=== PATIENT | male | born 1975 | race Caucasian/White ===

== ENCOUNTER → 2018-06-24 | Outpatient (CLI) | payer BC, OTHER ==
[~2018-06-24] VITALS: Ht 175.3 cm; Wt 78.5 kg
[~2018-06-24] MED LIST: LYRICA 75 MG CA75 MG PO; NORCO 5-325 TA1 EACH PO; OXYCODONE-ACET1 EACH PO; QSYMIA 11.25 M1 EACH PO; ZANAFLEX2 MG PO; ZANAFLEX4 MG PO
--- NOTE | ~2018-06-24 | HPC ---
[facility] [place] [address] PAIN MANAGEMENT CONSULTATION Name: GLADYS JAMIL Room #: REG [facility] Alfonso#: [id number] Admission: 06/24/18 Attend Phys: Rufus Montano DO Discharge: Date of : 77 Report #: [id number] THIS REPORT FOR: //name// CC: ROSA Allison Physician staff DATE OF SERVICE: 06/24/2018 CHIEF COMPLAINT: Low back pain, bilateral lower extremity pain with paresthesias. HISTORY OF PRESENT ILLNESS: As you know, the patient is a 43-year-old male who is typically seen in our [facility] office for lumbar radicular symptoms for which he undergoes epidural injections and receives Lyrica for pain control. He has recently changed his care over to [facility] office due to conflicts of scheduling at [facility]. He indicates pain is well controlled with epidural injections. His pain began about 2 years 3 months ago and has been intermittent since that point. He denies injury or trauma that may have led to symptom development. The patient indicates today, his pain is continuous with intermittent exacerbations and describes pain as shooting, sharp, numbness and tingling when describing pain. He places today's pain score at 8/10, daily average of 5-8/10, worst the pain has been is 9/10. The patient states that walking and certain activities exacerbate symptoms; resting and lying down tends to improve pain as do epidural injections and Lyrica. He returns today in followup visit to undergo lumbar epidural injection under fluoroscopic guidance and to receive refills of his Lyrica therapy. PAST MEDICAL HISTORY: 1. Chronic lumbar radicular symptoms. 2. Weight issues. PAST SURGICAL HISTORY: Back surgery. SOCIAL HISTORY: The patient denies tobacco, alcohol, IV or illicit drug use. 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 He is not receiving workmen's compensation nor is he trying to obtain disability benefits. He is not in litigation in regards to pain. REVIEW OF SYSTEMS: Positive for low back pain, bilateral lower extremity pain with paresthesias, variable weight. Difficulty with ambulating when pain is intense. All other review of systems is negative per 12-point review of systems other than those listed in history of present illness. Pain impact score 30/70 indicating [id number] interference of daily [address] [address] PAIN MANAGEMENT CONSULTATION Name: GLADYS JAMIL JACKIEPABLO Room #: REG BIB [facility]#: [id number] Admission: 06/24/18 Attend Phys: Rufus Montano DO Discharge: Date of : 77 Report #: [id number] activities secondary to pain. ALLERGIES: No reported drug allergies. CURRENT MEDICATIONS: Pregabalin 75 mg t.i.d., tizanidine 2 mg t.i.d. p.r.n., hydrocodone 5/325 one tab every 6 hours p.r.n. for pain, Qsymia 1 tab per day. IMAGING: No new imaging available. PHYSICAL EXAMINATION: VITAL SIGNS: Blood pressure 133/97, pulse 86, respiratory rate 16 and unlabored. The patient is 100% on room air. Height 5 feet 9 inches tall, weight 173 pounds, BMI calculated 25.5. GENERAL: Well-developed, well-nourished, well-hydrated 43-year-old male appearing stated age, placing current pain score at 8/10. HEENT: Normocephalic, atraumatic. Pupils equal, round, reactive to light. Extraocular muscles are intact. Sclerae nonicteric without injection. NEUROLOGIC: Cranial nerves 2-12 grossly intact. Speech fluent. LUNGS: Clear, no wheeze, rhonchi or rales. CARDIOVASCULAR: Regular. No appreciable gallop, no rub. ABDOMEN: Soft, nontender, nondistended, normoactive bowel sounds. EXTREMITIES: Show no clubbing, no cyanosis, no edema. MUSCULOSKELETAL: Seated straight leg raising negative. Supine straight leg raising positive. Serenity's test negative. Modified Gaenslen's is positive for axial low back pain. Ankle clonus negative. Gait mildly antalgic. Muscle bulk and tone appears equal and symmetrical. Deep tendon reflexes at patella and Achilles equal and symmetrical. ASSESSMENT: 1. Symptomatic lumbar radiculopathy. 2. Displacement of lumbar intervertebral disk with radiculopathy. 3. Lumbosacral spondylosis with radiculopathy. 4. Lumbar degeneration. 5. Chronic intractable pain. PLAN: 1. The patient returns today in followup visit to our clinic here at [facility] to undergo epidural injection under fluoroscopic guidance. He has recently changed his care from our [facility] office to [facility] office due to scheduling conflicts. The patient indicates no new injury or trauma that may have led to symptom recurrence. He typically receives injections about every 2-3 months for pain control and does very well with the injections. He has returned today in followup visit here at [facility] to undergo epidural injection under fluoroscopic guidance. He has been advised of the risks and benefits. These risks include but are not necessarily limited to bleeding, bruising, infection, worsening pain, no relief [facility] [address] [place] [address] PAIN MANAGEMENT CONSULTATION Name: GLADYS JAMIL Room #: REG [facility]#: [id number] Admission: 06/24/18 Attend Phys: Rufus Montano DO Discharge: Date of : 77 Report #: [id number] of pain, also risk of temporary or permanent muscle weakness, temporary or permanent nerve damage, possible paralysis and . The patient states he understood and wished to proceed. 2. The patient was provided a prescription for Lyrica 75 mg dose 1 tab p.o. t.i.d., I have given the patient #270, which is a 3-month prescription, I have given him also 3 refills 1 year of medication. The patient sends these to his mail order pharmacy who provides the medication on a 3-month basis. The prescriptions were provided to the patient today. 3. We will see the patient back in followup visit on an as needed basis for next in the series of epidural injections. Otherwise, we will see him back in 1 year for refills of Lyrica. By: [id number] Rufus Montano DO /nt
--- NOTE | ~2018-06-24 | HPC ---
[facility] [place] [address] [address] [place] [address] PAIN MANAGEMENT CONSULTATION Name: GLADYS JAMIL Room #: REG [facility] Alfonso#: [id number] Admission: 06/24/18 Attend Phys: Rufus Montano DO Discharge: Date of : 77 Report #: [id number] THIS REPORT FOR: //name// CC: ROSA Allison Physician staff DATE OF SERVICE: 06/24/2018 DESCRIPTION OF PROCEDURE: L5-S1 interlaminar epidural steroid injection under fluoroscopic guidance. After obtaining written consent, the patient was taken back to fluoroscopy suite, placed in prone position with pillow under abdomen to decrease lumbar lordosis. Skin overlying lumbosacral area then prepped and draped in aseptic fashion. Lumbar intervertebral spaces were identified by AP fluoroscopy. Skin and subcutaneous tissue overlying target site of injection was anesthetized with 3 mL of 1% lidocaine. A 20-gauge 3-1/2-inch Tuohy needle advanced under fluoroscopic guidance towards the epidural space using a parasagittal approach. Epidural space identified using loss of resistance to air technique. After negative aspiration for heme or cerebrospinal fluid, 1 mL of Isovue injected. Lumbar epidurogram confirmed using both AP and lateral fluoroscopy. After negative aspiration for heme or cerebrospinal fluid, 5 mL of solution containing 2 mL 40 mg per mL, 80 mg total triamcinolone, 3 mL lidocaine 1% injected slowly. Needle retracted approximately half way, flushed with 1 mL of 1% lidocaine and removed. Sterile bandage placed over injection site. No new motor deficits present in the lower extremity following the procedure. The patient tolerated procedure well, carefully escorted to recovery room in stable condition. No apparent complication. After meeting discharge criteria, the patient discharged home. By: [id number] Rufus Montano DO /nt
[2018-06-24 14:36] VITALS: BP 133/97
== END | disposition home or self-care (01) ==
LOC: PAIN 06:40
DX: M51.16 Intervertebral disc disorders with radiculopathy, lumbar region (principal); M47.27 Other spondylosis with radiculopathy, lumbosacral region; G89.29 Other chronic pain; Z79.891 Long term (current) use of opiate analgesic; Z79.899 Other long term (current) drug therapy; Z98.890 Other specified postprocedural states

== ENCOUNTER → 2019-09-15 | Outpatient (CLI) | payer BC, OTHER ==
[~2019-09-15] VITALS: Ht 175.3 cm; Wt 94.6 kg
[2019-09-15 12:46] VITALS: BP 140/97
--- NOTE | 2019-09-15 12:57 | NUR ---
Pain Clinic Assessment: 1. History of Osteoarthritis: Not Applicable History of Rheumatoid Arthritis: Not Applicable 2. Height: 5 ft. 9 in. 175.3 cm. Weight: 208.6 lb. oz. 94.620 kg. Patient's BMI: 30.8 3. Vital Signs: BP: 140/97 Pulse: 80 Resp: 16 Temp: 02 Sat: 98 ECG Mon: 4. Pain Intensity: 7 5. Fall Risk: Dizziness: N Needs help standing or walking: N Fallen in the last 3 months: N Fall risk comments: 6. Patient on Blood Thinner: None 7. History of Hypertension: N 8. Opioid Therapy greater than 6 weeks: Y Opiate Contract Signed: 9. Risk Assessment Tool Provided: 1-LOW 10. Functional Assessment Tool: 11. Recreational Drug Use: Never Drug Type: Tobacco Use: Never Smoker Tobacco Type: Amount or Packs/day: How Many Years: Alcohol Use: No Frequency: Quant:
--- NOTE | 2019-09-16 13:52 | HPC ---
[facility] [address] [address] [place] [address] PAIN MANAGEMENT CONSULTATION Name: GLADYS JAMIL Room #: REG BIB [facility].#: [id number] Admission: 09/15/19 Attend Phys: Rufus Montano DO Discharge: Date of : 77 Report #: [id number] THIS REPORT FOR: cc: ROSA ALLISON MD Physician not on staff Rufus Montano DO ~ THIS REPORT FOR: //name// CC: ROSA Montano Physician staff DATE OF SERVICE: 09/15/2019 REFERRING PHYSICIAN: Dr. Rosa Allison. CHIEF COMPLAINT: Low back pain, right lower extremity pain with paresthesias. HISTORY OF PRESENT ILLNESS: As you know, the patient is a 44-year-old male who has returned today in followup visit with recurrent low back pain, right lower extremity pain with paresthesias and intermittent left lower extremity pain. The patient states pain has been on and off for years, but of late has just recently been exacerbated. He is typically well controlled with Lyrica 75 mg dose 3 times a day, but apparently his symptoms worsened while he was on a trip to [facility]. He has returned today in followup visit per the request of his PCP to discuss the possibility of undergoing a lumbar epidural injection under fluoroscopic guidance. The patient denies injury or trauma that may have led to symptom development. He does have a longstanding history of back pain, for which he has been followed by our services both here at [facility] and at our [facility] office. He returns today for epidural injection and received refill of Lyrica. ALLERGIES: No known drug allergies. CURRENT MEDICATIONS: Lyrica 75 mg 3 times a day, Qsymia 1 tab per day, hydrocodone 5/325 one tab every 6 hours p.r.n. for pain, tizanidine 2 mg 2 tabs t.i.d. p.r.n. muscle spasm. SOCIAL HISTORY: The patient denies tobacco, alcohol, IV or illicit drug use. He is working, not receiving workmen's compensation, accompanied by his present in room today. IMAGING: No new imaging available. PHYSICAL EXAMINATION: [facility] [address] [place] [address] PAIN MANAGEMENT CONSULTATION Name: GLADYS JAMIL Room #: REG [facility].#: [id number] Admission: 09/15/19 Attend Phys: Rufus Montano DO Discharge: Date of : 77 Report #: [id number] VITAL SIGNS: Blood pressure 140/97, pulse 80, respiratory rate 16 and unlabored. The patient is 98% on room air. Height 5 feet 9 inches tall, weight 208.6 pounds, BMI calculated 30.8. GENERAL: Well-developed, well-nourished, well-hydrated 44-year-old male appearing stated age, pain is rated today 7/10. HEENT: Normocephalic, atraumatic. Pupils equal, round and reactive to light. Speech is fluent. EXTREMITIES: Show no clubbing, no cyanosis, no edema. MUSCULOSKELETAL: Seated straight leg raising is mildly positive on the right, negative left. Supine straight leg raising positive on the right. Serenity's test is negative. Modified Gaenslen's positive for some axial low back pain. Gait appears just mildly antalgic favoring right lower extremity. Muscle bulk and tone equal and symmetrical in lower extremities. ASSESSMENT: 1. Symptomatic lumbar radiculopathy. 2. Spinal stenosis of the lumbar spine. 3. Displacement of lumbar intervertebral disk with radiculopathy. 4. Lumbosacral spondylosis with radiculopathy. 5. Chronic intractable pain. PLAN: 1. The patient returns today in followup visit to undergo lumbar epidural injection under fluoroscopic guidance. The patient has reported good efficacy with previous epidural injections, noting up to 80-90% improvement in overall pain. He is denying any new injury or trauma that may have led to symptom reoccurrence. He is not on any blood thinners or antibiotics, which would preclude us from providing the injection today. He has been advised of the risks and benefits, states understood and wished to proceed. 2. The patient will be continued on his Lyrica. We have given him a prescription for 75 mg tablets 1 tab p.o. t.i.d. I have given the patient #270, which is a 3-month prescription with 3 refills, essentially one-year of medication. The patient will continue this medication for neuropathic pain control. He is denying side effects of sleepiness, disorientation, confusion, mental slowing or water weight gain on the medication. Prescription was provided to the patient in written form today. 3. We will see the patient back in followup visit on an as needed basis for possible next in the series of lumbar epidural injections. PROCEDURE NOTE DESCRIPTION OF PROCEDURE: L5-S1 interlaminar epidural steroid injection under fluoroscopic guidance. After obtaining written consent, the patient was taken back to fluoroscopy suite, placed in prone position with pillow under abdomen to decrease lumbar [address] [address] PAIN MANAGEMENT CONSULTATION Name: GLADYS JAMIL Room #: REG [facility]#: [id number] Admission: 09/15/19 Attend Phys: Rufus Montano DO Discharge: Date of : 77 Report #: [id number] lordosis. Skin overlying the lumbosacral area then prepped and draped in aseptic fashion. The L5-S1 vertebral interspace was identified by AP fluoroscopy. Skin and subcutaneous tissue overlying target site of injection anesthetized with 3 mL of 1% lidocaine. A 20-gauge 3-1/2 inch Tuohy needle advanced under fluoroscopic guidance towards the epidural space using a parasagittal approach. Epidural space identified using loss of resistance to air technique. After negative aspiration for heme or cerebrospinal fluid, 1 mL of Omnipaque injected. Lumbar epidurogram confirmed using both AP and lateral fluoroscopy. After negative aspiration for heme or cerebrospinal fluid, 5 mL of a solution containing 2 mL 40 mg per mL, 80 mg total triamcinolone along with 3 mL lidocaine 1% injected slowly. Needle then retracted approximately half way, flushed with 1 mL of 1% lidocaine and then removed. Sterile bandage placed over injection site. There were no new motor deficits present in lower extremity following procedure. The patient tolerated procedure well, carefully escorted to recovery room in stable condition. No apparent complications. After meeting discharge criteria, the patient discharged home. <ELECTRONICALLY SIGNED> By: Rufus Montano DO 09/16/19 [id number] 0001 Rufus Montano DO /nt
== END | disposition home or self-care (01) ==
LOC: PAIN 06:39
DX: M54.5 Low back pain (principal); M51.16 Intervertebral disc disorders with radiculopathy, lumbar region; M47.27 Other spondylosis with radiculopathy, lumbosacral region; M48.061 Spinal stenosis, lumbar region without neurogenic claudication; G89.29 Other chronic pain; Z98.890 Other specified postprocedural states; Z79.891 Long term (current) use of opiate analgesic

== ENCOUNTER → 2021-05-10 | Outpatient (CLI) | payer BC ==
[~2021-05-10] VITALS: Ht 175.3 cm; Wt 99.6 kg
--- NOTE | ~2021-05-10 | HPC ---
[facility] [place] [address] PAIN MANAGEMENT CONSULTATION Name: GLADYS JAMIL Room #: REG [facility] AiramEvelin#: [id number] Admission: 05/10/21 Attend Phys: Rufus Montano DO Discharge: Date of : 79 Report #: [id number] THIS REPORT FOR: cc: ROSA WOOD MD Physician not on staff Rufus Montano DO ~ cc: DATE OF SERVICE: 05/10/2021 REFERRING PHYSICIAN: . CHIEF COMPLAINT: Low back pain, right lower extremity pain with paresthesias. HISTORY OF PRESENT ILLNESS: As you know, the patient is a 46-year-old male returning in followup visit with recurrent low back pain, right lower extremity pain with paresthesias with intermittent left lower extremity pain, which presents only spontaneously. The patient returns today in followup visit stating his pain has begun to intensify. He describes the pain as his classic lumbar radiculopathy. He has done very well with previous epidural injections, returning today, requesting next in the series. The patient denies any specific injury or trauma that may have led to symptom development. He has been doing very well of recent, but has noted a slow and progressive return of symptoms with activities. He believes that the changes in his daily activity due to COVID-19 and his increase in weight may have exacerbated symptoms. He returns today requesting a lumbar epidural injection under fluoroscopic guidance. He is placing current pain score today at around 7/10 with activity. He has had a general weight gain of approximately 20 pounds. Pain began about 2-3 weeks ago without inciting injury or trauma. ALLERGIES: No known drug allergies. CURRENT MEDICATIONS: See chart. SOCIAL HISTORY: The patient denies tobacco, alcohol or IV or illicit drug use. He is working, not receiving workmen's compensation, unaccompanied today. IMAGING: No new imaging available. PHYSICAL EXAMINATION: VITAL SIGNS: Blood pressure 144/93, pulse 71, respiratory rate 16 and unlabored. The patient 98% on room air. Height 5 feet 9 inches tall, weight 219 pounds, BMI calculated 32.4. GENERAL: Well-developed, well-nourished, well-hydrated exogenously obese 46-year-old male, appearing stated age, pain is rated today around 7/10. HEENT: Normocephalic, atraumatic. Pupils are round. He is wearing a mask in compliance with COVID-[address] [address] PAIN MANAGEMENT CONSULTATION Name: GLADYS JAMIL Room #: REG [facility]#: [id number] Admission: 05/10/21 Attend Phys: Rufus Montano DO Discharge: Date of : 77 Report #: [id number] EXTREMITIES: Show no clubbing, no cyanosis, no appreciable edema. MUSCULOSKELETAL: Lower extremity strength remains symmetrical 5/5. Muscle bulk and tone is symmetrical in comparing left lower extremity to right. Seated straight leg raising negative. Supine straight leg raising is positive on the right. Gait appears normal. Stance normal. Downgoing Babinski's. ASSESSMENT: 1. Symptomatic lumbar radiculopathy. 2. Spinal stenosis of lumbar spine. 3. Displacement of lumbar intervertebral disk with radiculopathy. 4. Lumbosacral spondylosis with radiculopathy. PLAN: 1. The patient returns today in followup visit requesting to undergo lumbar epidural injection under fluoroscopic guidance. The patient has reported excellent benefit with previous epidural injection, which was performed some time ago. He reports about 75% improvement in overall pain until just recently where he has had a slow and progressive return of symptoms. He returns today in followup visit requesting to undergo lumbar epidural injection under fluoroscopic guidance. The patient was advised risks and benefits of the procedure, states understood and wished to proceed. 2. The patient was provided refill prescription of his Lyrica 75 mg dose. He takes 1 tab p.o. t.i.d. I have given the patient a prescription for today, 4 weeks from today, 8 weeks from today, 3 months' worth of medication. All prescriptions sent via e-scribe to local pharmacy. He will watch for any side effects with use of medication such as sleepiness, disorientation, confusion, mental slowing. If he notes these side effects, discontinue and call immediately. 3. We will see the patient back in followup visit on an as needed basis for the next in a series of lumbar epidural injections. PROCEDURE NOTE: DESCRIPTION OF PROCEDURE: L5-S1 right parasagittal epidural steroid injection under fluoroscopic guidance. After obtaining written consent, the patient was taken back to fluoroscopy suite, placed in prone position with pillow under abdomen to decrease lumbar lordosis. Skin overlying the lumbosacral area prepped and draped in aseptic fashion. L5-S1 vertebral interspace identified by AP fluoroscopy. Skin and subcutaneous tissue overlying target site injection anesthetized with 3 mL of 1% lidocaine. A 20 gauge 3-1/2 inch Tuohy needle advanced under fluoroscopic guidance towards the epidural space using a right parasagittal approach. Epidural space identified using loss of resistance to air technique. After negative aspiration [address] [address] PAIN MANAGEMENT CONSULTATION Name: GLADYS JAMIL Room #: REG [facility]#: [id number] Admission: 05/10/21 Attend Phys: Rufus Montano DO Discharge: Date of : 79 Report #: [id number] for heme or cerebrospinal fluid, 1 mL of Omnipaque injected. Lumbar epidurogram was confirmed using both AP and lateral fluoroscopy. After negative aspiration for heme or cerebrospinal fluid, 5 mL of a solution containing 2 mL 40 mg/mL, 80 mg total triamcinolone along with 3 mL of lidocaine 1% injected slowly. Needle retracted usp, flushed with 1 mL of 1% lidocaine and removed. Sterile bandage placed over injection site. No new motor deficits present in lower extremity following procedure. The patient tolerated the procedure well, carefully escorted to recovery room in stable condition. No apparent complications. After meeting discharge criteria, the patient discharged home. By: [id number] Rufus Montano DO /randy
[2021-05-10 08:59] VITALS: BP 144/93
--- NOTE | 2021-05-10 09:21 | NUR ---
Pain Clinic Assessment: 1. History of Osteoarthritis: Not Applicable History of Rheumatoid Arthritis: Not Applicable 2. Height: 5 ft. 9 in. 175.3 cm. Weight: 219.6 lb. oz. 99.610 kg. Patient's BMI: 32.4 3. Vital Signs: BP: 144/93 Pulse: 71 Resp: 16 Temp: 02 Sat: 98 ECG Mon: 4. Pain Intensity: 7 W/ACTIVITY 5. Fall Risk: Dizziness: N Needs help standing or walking: N Fallen in the last 3 months: N Fall risk comments: 6. Patient on Blood Thinner: None 7. History of Hypertension: N 8. Opioid Therapy greater than 6 weeks: Y Opiate Contract Signed: 9. Risk Assessment Tool Provided: 1-LOW 10. Functional Assessment Tool: 11. Recreational Drug Use: Never Drug Type: Tobacco Use: Never Smoker Tobacco Type: Amount or Packs/day: How Many Years: Alcohol Use: No Frequency: Quant:
== END | disposition home or self-care (01) ==
LOC: PAIN 06:59
PROVIDERS: ATTEND Anesthesiology Pain Medicine
DX: M51.16 Intervertebral disc disorders with radiculopathy, lumbar region (principal); M47.27 Other spondylosis with radiculopathy, lumbosacral region; M48.061 Spinal stenosis, lumbar region without neurogenic claudication; G89.29 Other chronic pain; Z98.890 Other specified postprocedural states; Z79.899 Other long term (current) drug therapy